=== PATIENT | female | born 1965 | race Caucasian/White ===

== ENCOUNTER → 2017-07-29 | Day surgery (SDC) | payer OTHER ==
[~2017-07-29] MED LIST: ALPRAZOLAM PO; ATIVAN2 M1 PO; DILAUDID2 MG PO; DOXEPIN PO; KETOPROFEN PO; SKELAXIN PO; SYNTHROID75 MCG PO; VICODIN 5/500 T1 TAB PO
--- NOTE | ~2017-07-29 | OR ---
Unit #: [id number] #: [id number] Patient: NOÉ BEST [id number] [address] [address] [id number] MR#: [id number] NAME: NOÉ BEST. ROOM: Date of Procedure: 07/29/2017 Admission Date: 07/29/2017 Surgeon: Alexandre Whipple M.D. : 1965 Attending Physician: Alexandre Whipple M.D. Primary Care Physician: Nita Mohan M.D. OPERATIVE REPORT PREOPERATIVE DIAGNOSIS Chronic radiculopathy. POSTOPERATIVE DIAGNOSIS Chronic radiculopathy. PROCEDURE PERFORMED Trial spinal cord stimulation with percutaneous lead placement with intravenous sedation and fluoroscopic guidance. DESCRIPTION OF PROCEDURE The patient was placed in a prone position. Standard monitors were applied. 2 mg of Versed were given for sedation and anxiolysis, which were adequate. Vital signs remained stable. Sterile prep and drape then of the thoracolumbar area was performed. The skin then to the left of midline at the L2 level was localized with 1% lidocaine. A 14-gauge introducer needle was then advanced via slight left paramedian approach and loss of resistance technique in toward the epidural space. The patient did not complain of pain or paresthesia during needle advancement. After confirming proper positioning with fluoroscopy, the 16-lead stimulating electrode was advanced just slightly to the right of midline. There was some mild difficulty steering and proposition. The distal leads finally was advanced to the top of the T9 vertebral body just slightly to the right of midline. In this position, we were able to obtain stimulation in the central electrodes that covered all of her painful areas in her right leg with an analgesic stimulation. The lead was firmly anchored with a 2-0 silk suture. Sterile dressings were applied. The patient was discharged to the recovery room in stable condition. The stimulator lead was a [employer] 16 contact lead electrode, serial #[id number]. Dictated by... Elsa Ulrich/ashley TD: 07/29/2017 12:33 JOB #: [id number] Unit #: [id number] #: [id number] Patient: NOÉ BEST OPERATIVE REPORT Page 1 of 1 X Alexandre Whipple MD X PROCEDURE OPERATIVE NOTE
== END | disposition home or self-care (01) ==
LOC: CCSC 09:10
DX: G89.29 Other chronic pain (principal); M54.16 Radiculopathy, lumbar region; F41.9 Anxiety disorder, unspecified; F32.9 Major depressive disorder, single episode, unspecified; Z88.5 Allergy status to narcotic agent; Z88.8 Allergy status to other drugs, medicaments and biological substances; Z79.899 Other long term (current) drug therapy
CPT/HCPCS: C1778; J2250